=== PATIENT | male | born 1930 | race Caucasian/White ===

== ENCOUNTER → 2017-03-28 | Day surgery (SDC) | payer MEDICARE, BC ==
[~2017-03-28] MED LIST: ALEVE220 M1 PO; AVANDIA PO; CELECOXIB200 MG PO; FLOMAX0.4 M1 PO; FLOMAX0.4 MG PO; HYDROCHLOROTHIA25 MG PO; LIPITOR20 MG PO; LOSARTAN POTASS25 MG PO; NORVASC PO; PIOGLITAZONE30 MG PO; TIMOPTIC 0.5% OP5 M2 OU
--- NOTE | ~2017-03-28 | OR ---
Unit #: [id number] #: [id number] Patient: ALOK ALEXIS [id number] [address] [place], [place] [address] [id number] O MR#: [id number] NAME: ALOK ALEXIS. ROOM: Date of Procedure: 03/28/2017 Admission Date: 03/28/2017 Surgeon: Ace Jules M.D. : 1930 Attending Physician: Ace Jules M.D. Primary Care Physician: Keagan Rhodes M.D. [facility] CENTER OPERATIVE NOTE PROCEDURE PERFORMED Lumbar epidural steroid injection under x-ray guided needle placement with provider administered conscious sedation. PREOPERATIVE DIAGNOSES 1. Acute lumbar radiculitis. 2. Spinal stenosis, lumbosacral spine. 3. Herniated disk, L3-L4, L4-L5, L5-S1. 4. Degenerative joint disease, lumbosacral spine. 5. Degenerative disk disease, lumbosacral spine. INDICATIONS FOR PROCEDURE The patient presents today with longstanding history of chronic lumbar radicular pain secondary to his underlying degenerative processes. He is generally fairly well managed medically with ongoing continuous conservative measures; however, he does occasionally experience exacerbations, which today have only responded to epidural steroid injections. His response is often times 80% to 90% for 10 to 12 weeks or longer. He presents today with a multiple week history of exacerbating pain, which are breaking through his ongoing continuous conservative measures. It has begun to affect his activities of daily living. After discussing risks and benefits of proceeding today with a lumbar approach epidural steroid injection utilizing a dual-needle technique, the patient agreed this would be the appropriate course of action. DESCRIPTION OF PROCEDURE He was then taken to the operating room, where he was prepped and draped in a sterile manner. Standard monitors were applied. He was sedated with 2 mg of IV Versed and lumbar epidural space accessed at the L4-L5 and the caudal epidural spaces using x-ray guidance and loss of resistance. Needle placement was confirmed with injection of 2 mL of Omnipaque at each level. There was good superior flow from the caudal located needle as well as good superior flow in the L4-L5 located needle. Following successful needle placement confirmation, which required 11 seconds of x-ray time, the patient received an injectate containing 4 mL normal saline, 40 mg of methylprednisolone in each needle location for a total injectate volume of 8 mL normal saline, and 80 mg of methylprednisolone. He tolerated this procedure well. He was discharged home with followup instructions, which include an offer to return to this clinic as early as 08/08/2017 if we could be of further service to him. Dictated by... Unit #: [id number] #: [id number] Patient: ALOK ALEXIS M.D. JRG/anette TD: 03/28/2017 21:40 JOB #: [id number] CC: Per Toussaint M.D. SUR[facility] CENTER OPERATIVE NOTE Page 1 of 1 X Kenney Jules MD X PROCEDURE OPERATIVE NOTE
== END | disposition home or self-care (01) ==
LOC: CCSC 10:14
DX: G89.29 Other chronic pain (principal); M48.07 Spinal stenosis, lumbosacral region; M51.16 Intervertebral disc disorders with radiculopathy, lumbar region; M51.17 Intervertebral disc disorders with radiculopathy, lumbosacral region
CPT/HCPCS: J1040; J2250

== ENCOUNTER → 2017-08-08 | Day surgery (SDC) | payer MEDICARE, BC ==
--- NOTE | ~2017-08-08 | OR ---
Unit #: [id number] #: [id number] Patient: ALOK ALEXIS [id number] [address] [place], [place] [address] [id number] O MR#: [id number] NAME: ALOK ALEXIS. ROOM: Date of Procedure: 08/08/2017 Admission Date: 08/08/2017 Surgeon: Ace Jules M.D. : 1930 Attending Physician: Kenney Jules Primary Care Physician: Generic Doctor Not In [facility]ENTER OPERATIVE NOTE PROCEDURE PERFORMED Lumbar epidural steroid injection under x-ray guided needle placement with provider administered conscious sedation. PREOPERATIVE DIAGNOSES 1. Acute lumbar radiculitis. 2. Spinal stenosis, lumbosacral spine. 3. 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 4. Herniated disk, L3-L4. 5. Herniated disk, L4-L5. 6. Herniated disk, L5-S1. 7. Degenerative joint disease, lumbosacral spine. 8. Degenerative disk disease, lumbosacral spine. INDICATIONS FOR PROCEDURE The patient presents today with longstanding history of chronic lumbar radicular pain secondary to his underlying degenerative processes. He is generally fairly well managed medically with ongoing medical management and self-directed physical activity. He does occasionally experience exacerbations, which to date have only responded to epidural steroid injections. His usual amount of relief is 80% to 100% for 10 to 12 weeks. He presents today complaining of just such an exacerbation, which has broken through his ongoing continuous conservative treatment and is consistent in pattern with both his x-ray studies and past exacerbations. It has been advancing in a 2 to 4 week history with a crescendo pattern and is now negatively impacting his activities of daily living. After discussing risks and benefits of proceeding today with a lumbar approach epidural steroid injection utilizing a dual needle technique, the patient agreed this would be the appropriate course of action. DESCRIPTION OF PROCEDURE He was then taken to the operating room, where he was prepped and draped in a sterile manner. Standard monitors were applied. He was sedated with 2 mg of IV Versed and lumbar epidural space was attempted to be accessed at the L5-S1. Attempts there was unsuccessful; therefore, we replaced the needle at the L4-L5 level with little difficulty using loss of resistance technique and x-ray guidance. Needle placement was confirmed with injection of 2 mL of Omnipaque. All of the x-ray dye advanced in the superior direction. Therefore, we decided to place our second epidural needle into the caudal epidural space. The patient was initially injected with 4 mL normal saline and 40 mg of methylprednisolone into the L4-L5 level. Following this, there was re-sterile prep, drape, and glowing, following which, the epidural space was accessed using a caudal approach Unit #: [id number] #: [id number] Patient: ALOK ALEXIS with x-ray guidance and loss of resistance technique. Again, needle placement was confirmed with injection of 2 mL of Omnipaque. Total x-ray time for this dual needle placement was 18 seconds. Following successful needle placement into the caudal space, the patient received an injectate containing 6 mL normal saline and 40 mg of methylprednisolone for a total injectate volume today of 10 mL of normal saline and 80 mg of methylprednisolone. He tolerated this procedure well. He was discharged home with followup instructions, which include an offer to return this clinic as early as 11/12/2017 if we could be of further service to him. Dictated by... Juju Steward/anette TD: 08/08/2017 11:51 JOB #: [id number] CC: Keagan Rhodes M.D. SURGERY CENTER OPERATIVE NOTE Page 1 of 1 X Kenney Jules MD X PROCEDURE OPERATIVE NOTE
== END | disposition home or self-care (01) ==
LOC: CCSC 08:18
DX: G89.29 Other chronic pain (principal); M51.17 Intervertebral disc disorders with radiculopathy, lumbosacral region; M51.16 Intervertebral disc disorders with radiculopathy, lumbar region; M48.07 Spinal stenosis, lumbosacral region; M47.27 Other spondylosis with radiculopathy, lumbosacral region; Z79.899 Other long term (current) drug therapy
CPT/HCPCS: 82947; J1040; J2250